=== PATIENT | male | born 1970 | race Caucasian/White ===

== ENCOUNTER 2016-10-13 21:16 | Emergency (ER) | payer OTHER ==
--- NOTE | ~2016-10-13 | CR21 ---
[facility]. [facility] A Service of [facility] & [facility] RADIOLOGY TEXT RESULTS PATIENT: SHAHZAD FRANKLIN LOCATION: SED : 68 UNIT #: [id number] AGE: [address]: TRUONG THOMAS SEX: M ORDER DR: [id number] [place] [id number] E MR#: [id number] Acc #: [id number] NAME: SHAHZAD FRANKLIN : 1970 SEX: M STUDY DATE/TIME: 10/13/2016 21:35 UNIT: SED ROOM: STUDY DESCRIPTION: CR Ankle Min 3 Views Rt Attending Physician: Truong Thomas Ordering Physician: Physician Non-Staff Primary Care Physician: Counts Include [address] [facility] MEDICAL IMAGING REPORT This report is preliminary unless electronic signature is present. EXAM Right ankle, 10/13 INDICATION Pain and swelling since 10/10/2016. No trauma. FINDINGS Three views of the right ankle were obtained. There is some lateral soft tissue swelling. No fracture or malalignment is seen. The mortise is intact. IMPRESSION Mild lateral soft tissue swelling. Otherwise negative. Dictated by... John Farris Jr., M.D. THIS IS AN ELECTRONICALLY VERIFIED REPORT John Farris Jr., M.D. at 10/13/2016 10:25 PM GENESIS/sadie TD: 10/13/2016 22:16 JOB #: [id number] MEDICAL IMAGING REPORT Page 1 of 1
[~2016-10-13 21:16] MED LIST: ADVIL; ALBUTEROL17 GM INH; AMOXIL400 MG/51 PO; BACITRACIN30 GM TOP; BACTRIM DS TABL1 TAB PO; BENTYL20 MG PO; CLEOCIN PA75 MG/5 M1 PO; DICLOFENAC PO; DOXYCYCLINE PO; FLEXERIL10 MG PO; HYDROMET SYRUP480 ML PO; IBUPROFEN PO; KEFLEX250 MG/5 M PO; NO MEDICATIONS; NYQUIL; PRELONE PO; PREVACID15 MG PO; RONDEC-DM SYRU120 ML PO; VICODIN 5/500 T1 TAB PO; ZITHROMAX200 MG/5 M PO; ZITHROMAX500 MG PO; [UNRECOGNIZED DRUG - REMARK]
== END 2016-10-13 22:42 | disposition home or self-care (01) ==
LOC: SED 21:16
DX: M25.571 Pain in right ankle and joints of right foot (principal); Z88.0 Allergy status to penicillin; Z88.5 Allergy status to narcotic agent; R03.0 Elevated blood-pressure reading, without diagnosis of hypertension
CPT/HCPCS: 29540; 73610; 99283